=== PATIENT | male | born 1990 | race Caucasian/White ===

== ENCOUNTER 2021-11-26 12:24 | Outpatient (CLI) | payer OTHER, SELFPAY ==
[2021-11-26 13:15] LABS: Basophils Absolute Auto 0.01 K/uL (0.00-0.30); Basophils Percent Auto 0.1 % (0.0-3.0); Eosinophils Absolute Auto 0.08 K/uL (0.00-0.50); Eosinophils Percent Auto 0.9 % (0.0-7.0); Hematocrit 49.2 % (37.0-53.0); Hemoglobin* 16.9 gm/dL (13.5-17.5); Immature Granulocytes Abs Auto 0.01 K/uL (0.00-0.30); Lymphocytes Absolute Auto 2.06 K/uL (0.90-2.90); Lymphocytes Percent Auto 21.9 % (20-44); Mean Corpuscular HGB Conc 34 gm/dL (32-36); Mean Corpuscular Hemoglobin 30 pg (26-34); Mean Corpuscular Volume 88 fL (80-100); Monocytes Percent Auto 5.1 % (0.0-11.0); Neutrophils Absolute Auto 6.75 K/uL (1.7-7.0); Neutrophils Percent Auto 71.9 % (42.0-72.0); Platelet Count* 222 K/uL (140-440); RDW Coefficient of Variation % 11.8 % (11.5-15.5); Red Blood Count 5.57 m/uL (4.30-5.90); White Blood Count* 9.39 K/uL (4.50-11.00)
[2021-11-26 13:46] LABS: Albumin* 5.4 g/dL (3.3-5.0); Chloride* 103 mmol/L (96-114)
[2021-11-26 13:47] LABS: Potassium* 4.7 mmol/L (3.6-5.1); Sodium* 141 mmol/L (135-149)
[2021-11-26 13:49] LABS: Carbon Dioxide* 27 mmol/L (20-32); Creatinine* 0.9 mg/dL (0.5-1.5); Estimated Glomerular Filt Rate 119 ml/min
[2021-11-26 13:50] LABS: Alanine Aminotransferase* 27 U/L (4-50); Alkaline Phosphatase* 89 U/L (40-150); Aspartate Amino Transferase* 27 U/L (12-35); Bilirubin Direct* 0.2 mg/dL (0.0-0.5); Bilirubin Total* 0.6 mg/dL (0.1-1.5); Blood Urea Nitrogen* 16 mg/dL (5-24); Calcium* 10.4 mg/dL (8.4-10.6); Glucose* 93 mg/dL (60-115); Total Protein* 8.4 g/dL (6.0-8.3)
[2021-11-26 14:01] LABS: Erythrocyte SedimentationRate* 2 mm/hr (2-15)
[2021-11-26 14:15] LABS: Slide Review Reflex No
== END 2021-11-26 12:25 | disposition home or self-care (01) ==
PROVIDERS: PCP Family Medicine; Visit Provider Family Medicine
DX: R19.7 Diarrhea, unspecified (principal)
CPT/HCPCS: 80048; 80076; 85025; 85651

== ENCOUNTER 2022-08-26 11:09 | Outpatient (CLI) | payer OTHER, SELFPAY | END 2022-08-26 11:10 | disposition home or self-care (01) | PROVIDERS: PCP Family Medicine; Visit Provider Family Medicine | DX: R63.4 Abnormal weight loss (principal) | CPT/HCPCS: 84443 ==

== ENCOUNTER 2024-05-09 09:20 | Outpatient (CLI) | payer OTHER, SELFPAY | END 2024-05-09 09:21 | disposition home or self-care (01) | PROVIDERS: PCP Family Medicine; Visit Provider Family Medicine | DX: Z13.228 Encounter for screening for other metabolic disorders (principal); Z13.220 Encounter for screening for lipoid disorders | CPT/HCPCS: 80048; 80061 ==